=== PATIENT | female | born 1985 | race African-American/Black ===

== ENCOUNTER 2023-11-03 15:55 | Outpatient (CLI) | payer OTHER ==
[~2023-11-03] VITALS: Ht 165.1 cm; Wt 109.1 kg
[~2023-11-03 15:55] MED LIST: ALBUTEROL SULFATE 2.5MG/0.5ML INH NEB SOLN INH PRN; EPINEPHrine INJ 1 MG/ML 1ML AMP IM PRN; diphenhydrAMINE 50MG/ML VIAL IV PRN; methylPREDNISolone 125MG 2ML VIAL IV PRN
[2023-11-03 16:00] VITALS: BP 138/93; O2SAT 100
[2023-11-03] MEDS ORDERED: NS 1,000 ML IV SCH ×2 (16:00→16:30)
[2023-11-03] MEDS ORDERED: FERRIC CARBOXYMALTOSE INJ 750 MG in NS 250 ML (>50kg) IV ONE (16:00)
[2023-11-03] MEDS ORDERED: ACETAMINOPHEN TAB 650MG DOSE (2X325MG) PO ONE ×2 (16:00→16:30)
[2023-11-03] MEDS ORDERED: diphenhydrAMINE 25MG IV PRIOR TO INFUSION IV ONE (16:00)
[2023-11-03] MEDS ORDERED: diphenhydrAMINE 50MG/ML VIAL IV ONE (16:30)
[2023-11-03] MEDS: FERRIC CARBOXYMALTOSE INJ 750 MG in NS 250 ML (>50kg) IV ONE (16:34)
[2023-11-03 17:14] VITALS: BP 147/89; O2SAT 100
== END 2023-11-03 17:44 | disposition home or self-care (01) ==
LOC: M INFU 15:55
PROVIDERS: ATTEND Internal Medicine
DX: D50.9 Iron deficiency anemia, unspecified (principal); Z88.0 Allergy status to penicillin; Z88.1 Allergy status to other antibiotic agents; Z91.013 Allergy to seafood; Z91.041 Radiographic dye allergy status
CPT/HCPCS: 96365; J1439

== ENCOUNTER 2023-11-10 14:30 | Outpatient (CLI) | payer OTHER ==
[~2023-11-10] VITALS: Ht 157.5 cm; Wt 122.0 kg
[2023-11-10 14:25] VITALS: BP 139/83; O2SAT 100
[~2023-11-10 14:30] MED LIST changes: +ACETAMINOPHEN TAB 650MG DOSE (2X325MG) PO ONE; +NS 1,000 ML IV SCH; +diphenhydrAMINE 25MG CAP PO ONE; +diphenhydrAMINE 50MG/ML VIAL IV ONE
[2023-11-10] MEDS: FERRIC CARBOXYMALTOSE INJ 750 MG in NS 250 ML (>50kg) IV ONE (14:39)
[2023-11-10 16:00] VITALS: BP 136/72; O2SAT 100
== END 2023-11-10 16:00 ==
LOC: EDUNIT# 14:30 → M INFU 14:30
PROVIDERS: ATTEND Internal Medicine
DX: D50.9 Iron deficiency anemia, unspecified (principal); Z88.0 Allergy status to penicillin; Z88.1 Allergy status to other antibiotic agents; Z88.3 Allergy status to other anti-infective agents
CPT/HCPCS: 96365; J1439

== ENCOUNTER 2025-04-15 13:37 | Outpatient (CLI) | payer OTHER ==
[~2025-04-15] VITALS: Ht 165.1 cm; Wt 127.3 kg
[~2025-04-15 13:37] MED LIST changes: -ACETAMINOPHEN TAB 650MG DOSE (2X325MG) PO ONE; +ALBUTEROL SULFATE 2.5 MG/0.5 ML INH CONCENTRATE NEB SOLN INH PRN; -ALBUTEROL SULFATE 2.5MG/0.5ML INH NEB SOLN INH PRN; +FERRIC CARBOXYMALTOSE 750 MG (VIAL MATE) IN 100ML NS IV ONE; -NS 1,000 ML IV SCH; -diphenhydrAMINE 25MG CAP PO ONE; +diphenhydrAMINE 50 MG/ML VIAL IV PRN; -diphenhydrAMINE 50MG/ML VIAL IV ONE; -diphenhydrAMINE 50MG/ML VIAL IV PRN; -methylPREDNISolone 125MG 2ML VIAL IV PRN
[2025-04-15 13:53] VITALS: BP 148/83; O2SAT 100
[2025-04-15] MEDS: FERRIC CARBOXYMALTOSE 750 MG (VIAL MATE) IN 100ML NS IV ONE (13:56)
[2025-04-15 14:25] VITALS: BP 133/93; O2SAT 100
== END 2025-04-15 14:20 | disposition home or self-care (01) ==
LOC: M INFU 13:37
PROVIDERS: ATTEND Internal Medicine
DX: D50.9 Iron deficiency anemia, unspecified (principal); Z98.84 Bariatric surgery status
CPT/HCPCS: 96365; J1439